=== PATIENT | male | born 2000 | race Two or more races ===

== ENCOUNTER 2018-12-10 03:35 | Emergency (ER) | payer BC ==
[~2018-12-10] VITALS: Ht 180.3 cm; Wt 81.6 kg
[2018-12-10 03:35] VITALS: BP 121/71
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
[2018-12-10 03:59] VITALS: BP 118/75
--- NOTE | 2018-12-10 04:01 | NUR ---
Patient discharged with v/s stable. Written and verbal after care instructions given and explained. Patient verbalized understanding. Ambulatory with in custody with [facility]. All questions addressed prior to discharge. Advised to follow up with PMD.
== END 2018-12-10 03:59 ==
LOC: MED 03:35
DX: Z02.89 Encounter for other administrative examinations (principal); V89.2XXA Person injured in unspecified motor-vehicle accident, traffic, initial encounter; Y93.89 Activity, other specified; Y92.89 Other specified places as the place of occurrence of the external cause; Y99.8 Other external cause status
CPT/HCPCS: 99283